=== PATIENT | female | born 1970 | race Caucasian/White ===

== ENCOUNTER 2017-09-23 12:59 | Emergency (ER) | payer BC ==
--- NOTE | 2017-09-23 14:10 | ER Document Report ---
HPI - HPI Pain Level: 4 Notes: Patient is a 47-year-old female with a history of hypertension and screw placement to the left ankle who presents the ED complaining of left knee pain/ injury today. Patient states that she is walking and heard a pop in the left lateral side. Patient states that she regularly favors that knee as it is, and had this pain when she was walking. Patient has not noticed any obvious swelling or bruising. The pain does not radiate. Patient states that she does have pain with weightbearing. Patient is from out of town and is going back on Thursday. Patient states that she does have an orthopedic provider there. No other concerns or complaints at this time. Denies any headache, fever, URI, sore throat, chest pain, palpitations, syncope, cough, shortness of breath, wheeze, dyspnea, abdominal pain, nausea/vomiting/diarrhea, urinary retention, dysuria, hematuria, loss of control of bowel or bladder, numbness/tingling, saddle anesthesia, muscle paralysis/weakness, or rash. - ROS Notes: REVIEW OF SYSTEMS: CONSTITUTIONAL : Denies fever, chills, or sweats. Denies recent illness. EENT: Denies eye, ear, throat, or mouth pain or symptoms. Denies nasal or sinus congestion or discharge. Denies throat, tongue, or mouth swelling or difficulty swallowing. CARDIOVASCULAR: Denies chest pain. Denies palpitations or racing or irregular heart beat. Denies ankle edema. RESPIRATORY: Denies cough, cold, or chest congestion. Denies shortness of breath, difficulty breathing, or wheezing. GASTROINTESTINAL: Denies abdominal pain or distention. Denies nausea, vomiting , or diarrhea. Denies blood in vomitus, stools, or per rectum. Denies black, tarry stools. Denies constipation. GENITOURINARY: Denies difficulty urinating, painful urination, burning, frequency, blood in urine, or discharge. MUSCULOSKELETAL: see hpi SKIN: Denies rash, lesions or sores. NEUROLOGICAL: Denies confusion or altered mental status. Denies passing out or loss of consciousness. Denies dizziness or lightheadedness. Denies headache. Denies weakness or paralysis or loss of use of either side. Denies problems with gait or speech. Denies sensory loss, numbness, or tingling. Denies seizures. ALL OTHER SYSTEMS REVIEWED AND NEGATIVE. Dictation was performed using [employer] voice recognition software - CONSTITUTIONAL Constitutional: DENIES: Fever, Chills - MUSCULOSKELETAL Musculoskeletal: REPORTS: Extremity pain - left lateral knee Past Medical History - Social History Smoking Status: Never Smoker Chew tobacco use (# tins/day): No Frequency of alcohol use: None Drug Abuse: None Family History: Reviewed & Not Pertinent Patient has suicidal ideation: No Patient has homicidal ideation: No - Past Medical History Cardiac Medical History: Reports: Hx Hypercholesterolemia, Hx Hypertension Renal/ Medical History: Denies: Hx Peritoneal Dialysis Past Surgical History: Reports: Hx Orthopedic Surgery - left ankle fusion Vertical Provider Document - CONSTITUTIONAL Agree With Documented VS: Yes Notes: PHYSICAL EXAMINATION: GENERAL: Well-appearing, well-nourished and in no acute distress. A&Ox4 LUNGS: Breath sounds clear to auscultation bilaterally and equal. No wheezes rales or rhonchi. HEART: Regular rate and rhythm without murmurs, rubs, gallops. Musculoskeletal: Left knee: FROM to passive/active. Strength 5+/5. No obvious effusion, ecchymosis, erythema, or warmth. + tenderness to stress on the LCL and to the left lateral joint line to palp. N/V intact distal. Ge negative. Extremities: No cyanosis, clubbing, or edema b/l. Peripheral pulses 2+. Capillary refill less than 3 seconds. NEUROLOGICAL: Normal speech, limping gait. Normal sensory, motor exams PSYCH: Normal mood, normal affect. SKIN: Warm, Dry, normal turgor, no rashes or lesions noted. - INFECTION CONTROL TRAVEL OUTSIDE OF THE [place] IN LAST 30 DAYS: No - RESPIRATORY O2 Sat by Pulse Oximetry: 95 Course - Re-evaluation Re-evalutation: 09/23/17 14:17 Patient is an afebrile, well-hydrated, 47-year-old female who presents to the ED with left knee pain, suspect possible internal knee involvement. Vitals are stable. PE is otherwise unremarkable for any neurovascular compress, obvious tendon/ligament rupture, obvious fractures/dislocation, septic joint. X-ray was unremarkable for any acute pathology. Knee immobilizer was placed and crutches were provided. Ice pack was given. I will send her home with a prescription for naproxen. Conservative measures for symptoms otherwise. Recheck with your PCM in 3-5 days. Call orthopedics to set up an appointment for further evaluation and management. Return to the ED with any worsening/ concerning symptoms otherwise as reviewed discharge. Patient is in agreement. - Vital Signs Vital signs: Temp Pulse Resp BP Pulse Ox 98.5 F 73 16 140/75 H 95 09/23/17 13:05 09/23/17 13:05 09/23/17 13:05 09/23/17 13:05 09/23/17 13:05 Discharge - Discharge Clinical Impression: Left knee pain Qualifiers: Chronicity: acute Qualified Code(s): M25.562 - Pain in left knee Condition: Stable Disposition: HOME, SELF-CARE Instructions: Knee Immobilizing Splint ([facility]), Knee Exercise Program ([facility]), Suspected Internal Knee Injury ([facility]) Additional Instructions: Rest, Ice, Compression, Elevation Use crutches/splint as directed Tylenol/ibuprofen as needed Light stretches daily Strength exercises as able Moist heat and massage may help F/u with your PCP in 3-5 days for a recheck Consider consult(s) with Orthopedics/physical therapy for ongoing/worsening symptoms Return to the ED with any worsening symptoms and/or development of fever, headache, chest pain, palpitations, syncope, shortness of breath, trouble breathing, abdominal pain, n/v/d, muscle weakness/paralysis, numbness/tingling, swelling, redness, or other worsening symptoms that are concerning to you. Prescriptions: Naproxen 500 mg PO BID PRN #30 tablet PRN Reason: Forms: Elevated Blood Pressure Referrals: [facility] [Provider Group] - Follow up as needed
--- NOTE | 2017-09-23 14:14 | RADIOLOGY REPORT (SQ) ---
EXAM DESCRIPTION: KNEE LEFT 4 VIEW COMPLETED DATE/TIME: 09/23/2017 1:42 pm REASON FOR STUDY: knee pain COMPARISON: None. NUMBER OF VIEWS: Four views left knee. LIMITATIONS: None. FINDINGS: Bipartite patella. No acute fracture or bone lesion detected. Joint spaces are relativel y maintained on nonweightbearing views. No effusion. OTHER: No other significant finding. IMPRESSION: No acute radiographic injury evident. Findings as above including incidental bipartite patella. TECHNICAL DOCUMENTATION: JOB ID: [id number]
[2017-09-23 14:44] VITALS: BP 135/70
== END 2017-09-23 14:44 | disposition home or self-care (01) ==
LOC: ER 12:59
DX: M25.562 Pain in left knee (principal); I10 Essential (primary) hypertension
CPT/HCPCS: 99283; 73562; L1830